=== PATIENT | female | born 1970 | race Caucasian/White ===

== ENCOUNTER → 2017-07-17 09:09 | Outpatient (CLI) | payer MEDICAID ==
[2014-07-30 07:17] VITALS: BMI 47.1
[~2017-07-17 09:09] MED LIST: ACCUPRIL5 MG PO; FLINTSTONE1 TAB.CHEW PO; GLUCOPHAGE1000 MG PO; HUMALOG 30100 UNITS/ SC; LANTUS INSULIN10 ML SC; PRILOSEC20 MG PO
== END | disposition home or self-care (01) ==
LOC: D.CT 09:09
DX: J43.9 Emphysema, unspecified (principal)